=== PATIENT | male | born 1990 | race American Indian/Alaskan Native ===

== ENCOUNTER 2019-01-19 14:57 | Emergency (ER) | payer SELFPAY ==
[2019-01-19 15:16] VITALS: BP 122/74
--- NOTE | 2019-01-19 15:22 | Emergency Department Report ---
Abscess Boil HPI - HPI Chief Complaint: Skin/Abscess/Foreign Body Stated Complaint: ARM PAIN Time Seen by Provider: 01/19/19 15:15 Duration: 1 Week Location: Upper Extremity (right armpit) Severity: Mild History: Yes Pain, No Fever, No Purulent Drainage, No Numbness, No Foreign Body, No Previous History, No Insect Bite HPI: 29 y o male presents with right david pain and small swelling x 1 week, no other symptoms Home Medications: Previous Rx's Medication Instructions Recorded Last Taken Type Clindamycin [Clindamycin CAP] 300 mg PO Q8H #15 cap 01/19/19 Unknown Rx Sulfamethoxazole/Trimethoprim 1 each PO BID #10 tablet 01/19/19 Unknown Rx [Bactrim DS TAB] Allergies/Adverse Reactions: Allergies Allergy/AdvReac Type Severity Reaction Status Date / Time No Known Allergies Allergy Verified 01/19/19 15:00 ED Review of Systems ROS: Stated complaint: ARM PAIN Other details as noted in HPI Comment: All other systems reviewed and negative ED Past Medical Hx - Past Medical History Previous Medical History?: No - Surgical History Past Surgical History?: No - Social History Smoking Status: Never Smoker Substance Use Type: Alcohol, Marijuana - Medications Home Medications: Home Medications Medication Instructions Recorded Confirmed Last Taken Type Clindamycin [Clindamycin CAP] 300 mg PO Q8H #15 cap 01/19/19 Unknown Rx Sulfamethoxazole/Trimethoprim 1 each PO BID #10 tablet 01/19/19 Unknown Rx [Bactrim DS TAB] ED Abscess Boil Physical Exam - Exam General: Vital signs noted. No distress. Alert and acting appropriately. Size: 2 cm Exam: Yes Tenderness, No Fluctuance, No Surrounding Cellulites/Erythema, No Lymphangitis, No Crepitation, No Heart Murmur, No Normal Neurologic Exam, No Normal Circulation I & D Note - I & D Note I & D Note: Not performed as not needed to be excised ED Course Vital Signs 01/19/19 15:13 Pulse Rate 73 Respiratory 16 Rate Blood Pressure 122/74 O2 Sat by Pulse 100 Oximetry Critical care attestation.: If time is entered above; I have spent that time in minutes in the direct care of this critically ill patient, excluding procedure time. ED Disposition Clinical Impression: Axillary abscess Disposition: DC-01 TO HOME OR SELFCARE Is pt being admited?: No Does the pt Need Aspirin: No Condition: Stable Instructions: Abscess (ED) Additional Instructions: follow up with pcp, take medication as prescribed Prescriptions: Sulfamethoxazole/Trimethoprim [Bactrim DS TAB] 1 each PO BID #10 tablet Clindamycin [Clindamycin CAP] 300 mg PO Q8H #15 cap Referrals: [facility] [Outside] - 3-5 Days [facility] [Outside] - 3-5 Days Forms: Accompanied Note, Work/School Release Form(ED) Time of Disposition: 15:31
[2019-01-19] MEDS ORDERED: IBUPROFEN PO ONE ×2 (15:36→15:39)
== END 2019-01-19 15:40 | disposition home or self-care (01) ==
LOC: ED 14:57
DX: L02.411 Cutaneous abscess of right axilla (principal); F12.10 Cannabis abuse, uncomplicated